=== PATIENT | female | born 1980 | race Two or more races ===

== ENCOUNTER 2021-11-04 14:45 | Emergency (ER) | payer SELFPAY ==
[~2021-11-04] VITALS: Ht 160 cm; Wt 72.6 kg
[2021-11-04 15:00] VITALS: BP 147/72
[2021-11-04] MEDS ORDERED: CIPR-173 PO (16:53)
[2021-11-04 17:06] LABS: Urine Bacteria FEW /hpf (None Seen); Urine Blood 2+ /uL (Negative); Urine Mucus FEW (None Seen); Urine WBC 705 /hpf (0 - 5); Urine WBC Clumps PRESENT /hpf (None Seen)
== END 2021-11-04 17:30 | disposition home or self-care (01) ==
LOC: ER 14:45
DX: N39.0 Urinary tract infection, site not specified (principal)
CPT/HCPCS: 81001